=== PATIENT | female | born 1995 | race Two or more races ===

== ENCOUNTER 2018-05-20 07:32 | Day surgery (SDC) | payer OTHER ==
[~2018-05-20] VITALS: Ht 157.5 cm; Wt 59.6 kg
[~2018-05-20 07:32] MED LIST: HYDROmorphone 2 MG/ML VIAL IV PRN; IV RINGERS,LACTATED 1000ML 1,000 ML IV SCH; LIDOCAINE 1% PF 2 ML VIAL. ID PRN; MORPHINE SULFATE 4 MG/ML VIAL. IV PRN; ONDANSETRON PF 4 MG/2 ML VIAL. IV PRN; PROCHLORPERAZINE 10 MG/2 ML VIAL. IV PRN; fentaNYL PF VIAL 100 MCG/2 ML VIAL IV PRN
[2018-05-20 07:38] LABS: U PREG PATIENT NEGATIVE (NEG)
[2018-05-20] MEDS ORDERED: PROPOFOL 20 ML IV ONE (08:28)
[2018-05-20] MEDS ORDERED: LIDOCAINE 2% PF Vial for OR 5 ML VIAL. ONE (08:28)
[2018-05-20] MEDS ORDERED: ROCURONIUM 50 MG/5 ML VIAL. ONE (08:29)
[2018-05-20] MEDS ORDERED: fentaNYL PF VIAL 100 MCG/2 ML VIAL ONE (08:29)
[2018-05-20] MEDS ORDERED: MIDAZOLAM HCL/PF 2 MG/2 ML VIAL. ONE (08:59)
[2018-05-20] MEDS ORDERED: BUPIVAC MPF-EPI 0.5%-1:200000 30 ML VIAL. ONE (09:05)
[2018-05-20] MEDS ORDERED: IOHEXOL 300 MG/ML 100ML VIAL. ONE (09:06)
[2018-05-20] MEDS ORDERED: SURGICEL HEMOSTAT 4X8 EACH. ONE (09:06)
[2018-05-20] MEDS ORDERED: ONDANSETRON PF 4 MG/2 ML VIAL. ONE (09:20)
[2018-05-20] MEDS ORDERED: GLYCOPYRROLATE 1 MG/5 ML VIAL. ONE (09:20)
[2018-05-20] MEDS ORDERED: NEOSTIGMINE 10 MG/10 ML VIAL. ONE (09:20)
[2018-05-20] MEDS ORDERED: DESFLURANE 31 TO 60 MINUTES IH ONE (09:20)
[2018-05-20] MEDS ORDERED: FAMOTIDINE 20 MG/2 ML VIAL ONE (09:21)
--- NOTE | 2018-05-20 10:04 | PDOC4 ---
Operative Note Operative Note Date: 05/20/2018 Preoperative diagnosis: Biliary dyskinesia Postoperative diagnosis: Same Procedure: Laparoscopic cholecystectomy Specimen: Gallbladder Surgeon: Paolo Dictation: Patient is 23-year-old female was having right upper quadrant abdominal pain postprandial nausea during her continued after delivery HIDA scan showed abnormal ejection fraction. The procedure of laparoscopic cholecystectomy was explained to the patient in detail risk benefits were also discussed including bleeding infection injury to intra- abdominal contents possibly necessitating further or open operations. Alternatives to this procedure also discussed with the patient who seemed to understand and gave both verbal and written consent to have the procedure performed. Patient was taken to the operating room placed in the supine position general anesthesia was initiated once patient was asleep and intubated her abdomen was prepped and draped usual sterile fashion using ChloraPrep and area just below the umbilicus was injected with quarter percent Marcaine with epinephrine incision was made over the left blade scalpel and a Veress needle was placed within the abdomen creating a pneumoperitoneum once this was complete 11 millimeter port was placed and a 5 mm camera was placed within the abdomen which was inspected no other abnormalities were noted. 5 mm port was placed in the epigastrium 5 mm port was placed in the right lateral abdomen and one in the right mid abdomen all under direct visualization the dome of the gallbladder was grasped and retracted cephalad and the infundibulum of the gallbladder was grasped and retracted laterally exposing the triangle. Adherent tissues the triangle were taken down with blunt dissection exposing the cystic duct and cystic artery both were doubly clipped and transected the gallbladder was taken off the liver with hook electrocautery placed within Endo Catch bag and removed from the umbilicus. Right upper quadrant was irrigated and suctioned dry hemostasis was deemed to be appropriate and the pneumoperitoneum was reduced all ports were removed and the fascial defect at the umbilicus was closed with a [id number] 0 Vicryl suture and the skin was reapproximated all port sites with 40 subarticular Monocryl Mastisol Steri-Strips and Band- Aids were applied as dressings. The patient was awakened and x-ray did not operating room taken to recovery in stable condition all sponge instrument needle counts listed as correct estimated blood loss 5 mL SUSAN LAUREANO MD May 20, 2018 10:04
--- NOTE | 2018-05-20 10:05 | DISCH ---
DISCHARGE INSTRUCTIONS Condition on Discharge Condition on Discharge: Stable Activity After Discharge Activity Instructions for Disc: Avoid exertion Other activity instructions: no lifting more than 20 pounds for 2 weeks Diet after Discharge Diet after Discharge: Low Fat Wound Incision Care Other wound/incision instructi: a shower 24 hours Contacting the DRPenny after DC Call your doctor for: If your condition worsens Follow-Up Follow up with: Dr. Laureano in 2 weeks SUSAN LAUREANO MD May 20, 2018 10:05
[2018-05-20] MEDS ORDERED: HYDR15SO6 PO (10:15)
[2018-05-20] MEDS ORDERED: HYDROcodon/APAP 7.5/325MG ORAL 15 ML SOLUTION PO ONE (11:00)
[2018-05-20 11:45] VITALS: BP 119/50
--- NOTE | 2018-05-23 16:09 | PATHOLOGY ---
[facility] Accession Number: [id number] . 01 Material submitted: . GALLBLADDER . 01 Clinical history: . Chronic cholelithiasis. . 02 Diagnosis: Gallbladder, laparoscopic cholecystectomy: - Cholelithiasis. - Cholesterolosis. - Chronic cholecystitis. . ([facility]; 05/23/2018) [facility]/05/23/2018 . 02 Comment: There is no evidence of malignancy. . ([facility]; 05/23/2018) . 02 Electronically signed: . Hal Waldrop MD, Pathologist NPI- [id number] . 01 Gross description: . Received in formalin labeled "Cassidy Carvalho, gallbladder" is an intact cholecystectomy specimen measuring 6.8 x 2.7 x 2.5 cm. The serosa is pink-green and smooth and the specimen is opened to reveal yellow-green velvety mucosa with scant yellow stippling and without polyps or masses. The average wall thickness measures 0.3 cm. Multiple sutherland-brown bosselated calculi are present measuring in aggregate 2.5 x 1.3 x 1.3 cm and ranging from 0.1-1.5 cm in greatest dimension. Drop Hammer Mechanic sections of the fundus, body, and the cystic duct margin are submitted in cassette A1. ([facility]; 05/22/2018) SYC/SYC . 02 Pathologist provided ICD-10: K80.10 . 02 CPT . 546526 Specimen Comment: A courtesy copy of this report has been sent to Specimen Comment: [phone]. Specimen Comment: Report sent to Performed at: [address], [place], [place] [id number] MD Camilo Somers MD Phone: [phone] Performed at: 02 [facility] [address] [place], [place] [id number] MD Hal Waldrop MD Phone: [phone]
== END 2018-05-20 12:05 | disposition home or self-care (01) ==
LOC: SURG 07:32
PROVIDERS: ATTEND Surgery
DX: K80.10 Calculus of gallbladder with chronic cholecystitis without obstruction (principal); Z79.899 Other long term (current) drug therapy; Z98.890 Other specified postprocedural states; Z87.891 Personal history of nicotine dependence
CPT/HCPCS: 47562; 81025; 88304; J0696; J0780; J2001; J2250; J2405; J2704; J2710; J3010; J3490; J7030; Q9967